=== PATIENT | male | born 1930 | race Caucasian/White ===

== ENCOUNTER 2017-06-14 09:42 | Inpatient (IN) ==
--- NOTE | 2017-06-13 16:43 | Discharge Summary ---
<Nallely Collins E - Last Filed: 06/13/17 16:40> Date of Encounter: 06/13/17 - Discharge Diagnosis (1) Rotator cuff tear arthropathy of right shoulder Priority: Primary Status: Chronic (2) HLD (hyperlipidemia) Priority: Secondary Status: Chronic Qualifiers: Hyperlipidemia type: unspecified Qualified Code(s): E78.5 - Hyperlipidemia , unspecified (3) HTN (hypertension) Priority: Secondary Status: Chronic Qualifiers: Hypertension type: unspecified Qualified Code(s): I10 - Essential (primary ) hypertension (4) GERD (gastroesophageal reflux disease) Priority: Secondary Status: Chronic Qualifiers: Esophagitis presence: esophagitis presence not specified Qualified Code(s) : K21.9 - Gastro-esophageal reflux disease without esophagitis (5) History of skin cancer Priority: Secondary Status: Chronic - Discharge Medications Home Medications: Aspirin 81 mg PO DAILY 02/20/16 [History] Gluc/Hayden-MSM#1/C/Romero/Abhishek/Bor [Osteo Bi-Flex Caplet] 1 tab PO DAILY 02/20/16 [ History] Multivitamin [Multi-Day Vitamins] 1 tab PO DAILY 02/20/16 [History] Pravastatin Sodium [Pravachol] 20 mg PO DAILY 02/20/16 [History] Ramipril [Altace] 5 mg PO DAILY 02/20/16 [History] hydroCHLOROthiazide [Hydrochlorothiazide] 25 mg PO DAILY 02/20/16 [History] Aspirin Enteric Coated [Aspirin EC] 325 mg PO DAILY 21 Days #21 tablet. [Rx] OxyCODONE Immed Rel [Roxicodone 5 MG] 5 mg PO Q6HR PRN 7 Days #28 tablet [Rx] Omeprazole [PriLOSEC] 40 mg PO DAILY 06/14/17 [History] Tramadol HCl [Ultram] 50 - 100 mg PO HS PRN 06/14/17 [History] Allergies/Adverse Reactions: 3 Allergy/AdvReac Type Severity Reaction Status Date / Time No Known Allergies Allergy Verified 06/14/17 10:15 Primary care physician: Ray Tom DO - Patient Status Disposition: Home Health Service Condition: Good - Discharge Instructions Follow Up With: Ray Tom DO [Primary Care Provider] - - Hospital Course Hospital course: Mr. Hurt is a 86 year old male - Time Spent with Patient Total time spent providing and/or coordinating discharge services: <Gerardo Low - Last Filed: 06/15/17 06:27> Date of Encounter: 06/15/17 Time of Encounter: 06:27 - Discharge Diagnosis (1) Obesity (BMI 30.0-34.9) Priority: Secondary Status: Chronic (2) Rotator cuff tear arthropathy of right shoulder Priority: Primary Status: Chronic (3) HLD (hyperlipidemia) Priority: Secondary Status: Chronic Qualifiers: Hyperlipidemia type: unspecified Qualified Code(s): E78.5 - Hyperlipidemia , unspecified (4) HTN (hypertension) Priority: Secondary Status: Chronic Qualifiers: Hypertension type: unspecified Qualified Code(s): I10 - Essential (primary ) hypertension (5) GERD (gastroesophageal reflux disease) Priority: Secondary Status: Chronic Qualifiers: Esophagitis presence: esophagitis presence not specified Qualified Code(s) : K21.9 - Gastro-esophageal reflux disease without esophagitis (6) History of skin cancer Priority: Secondary Status: Chronic (7) Status post reverse total arthroplasty of right shoulder Priority: Primary Status: Acute Primary care physician: Ray Tom DO - Patient Status Functional capacity at discharge: independent ambulation Overall status at discharge: patient is progressing back to baseline - Hospital Course Hospital course: Mr. Hurt is a 86 year old male Post shoulder replacement The patient had an uneventful postoperative course. They received antibiotics and physical therapy and were discharged in stable condition. There will follow -up in the office in 2 weeks. - Time Spent with Patient Total time spent providing and/or coordinating discharge services:
--- NOTE | 2017-06-13 16:45 | Physician Discharge Referral ---
Home Health/Hosp Referral Info Transfer to: Home Health Attending Provider: Dr Gerardo Low - Diagnosis (1) Rotator cuff tear arthropathy of right shoulder Priority: Primary Status: Chronic (2) HLD (hyperlipidemia) Priority: Secondary Status: Chronic (3) HTN (hypertension) Priority: Secondary Status: Chronic (4) GERD (gastroesophageal reflux disease) Priority: Secondary Status: Chronic (5) History of skin cancer Priority: Secondary Status: Chronic (6) Status post reverse total arthroplasty of right shoulder Priority: Primary Status: Acute - Respiratory Orders Smoking Cessation: Smoking cessation has been advised. For more information, call the [place] Tobacco Quit Line at 7-973-FRIF-NOW. - Dressing/Wound Care Site: right shoulder Type of Dressing/Treatments w/Frequency: Opsite placed. Keep dressing intact until first follow up appointment. If > 50% saturated, notify office, remove dressing and place appropriate dressing back in place. Dressing is water resistant, not water-proof. OK to shower, but do not get dressing wet. - Diet/Nutrition Diet/Nutrition Orders: Regular - Activity Activity Orders: Up ad manoj, Ambulate, Chair Activity: List: PT/OT. NWB to affected upper extremity. Follow Shoulder Precautions x 6 weeks. Stay in brace during activity and at night. Remove brace during exercises. ICE and elevate extremity frequently throughout the day. - Services Needed Following services are medically necessary services: Nursing, Home Health Aide, Physical Therapy, Occupational Therapy - Transfer Medications Prescriptions: OxyCODONE Immed Rel [Roxicodone 5 MG] 5 mg PO Q6HR PRN 7 Days #28 tablet PRN Reason: Pain Aspirin Enteric Coated [Aspirin EC] 325 mg PO DAILY 21 Days #21 tablet. Home Medications: Aspirin 81 mg PO DAILY 02/20/16 [History] Gluc/Hayden-MSM#1/C/Romero/Abhishek/Bor [Osteo Bi-Flex Caplet] 1 tab PO DAILY 02/20/16 [ History] Metoprolol XL (24 HR) Succ [Toprol XL] 25 mg PO DAILY 02/20/16 [History] Multivitamin [Multi-Day Vitamins] 1 tab PO DAILY 02/20/16 [History] Pravastatin Sodium [Pravachol] 20 mg PO DAILY 02/20/16 [History] Ramipril [Altace] 5 mg PO DAILY 02/20/16 [History] hydroCHLOROthiazide [Hydrochlorothiazide] 25 mg PO DAILY 02/20/16 [History] Aspirin Enteric Coated [Aspirin EC] 325 mg PO DAILY 21 Days #21 tablet. [Rx] OxyCODONE Immed Rel [Roxicodone 5 MG] 5 mg PO Q6HR PRN 7 Days #28 tablet [Rx] Allergies/Adverse Reactions: 3 Allergy/AdvReac Type Severity Reaction Status Date / Time No Known Allergies Allergy Verified 06/04/17 08:38 Certification: Further, I certify that my clinical findings support that this patient is homebound (i.e. absences from home require considerable and taxing effort and are for medical reasons or hinduism services or infrequently or short duration when for other reasons) because: Homebound Reason: Post-surgery restriction and or conditions limit ability to leave home Attestation: My signature below is to certify that this patient is under my care and that I, or nurse practitioner, or a physician phlebotomist medical lab assistant working with me, has a face-to- face encounter with this patient.
[2017-06-14] MEDS ORDERED: CeFAZolin Syr 2,000MG/20 ML 2,000 MG/20 ML SYRINGE IVPB ONE (09:56)
[2017-06-14] MEDS ORDERED: Ringers Solution, Lactated 1,000 ML IVC SCH ×2 (10:00→15:17)
--- NOTE | 2017-06-14 10:31 | History & Physical Report ---
Date of Encounter: 06/14/17 Time of Encounter: 10:31 24 Hour HP Update - Instructions Instructions: If the History and Physical is less than 30 days old and was completed prior to A.M. admission and or procedure and has NOT been updated on calendar day of procedure please complete this update prior to performing procedure. - Update Patient reports changes in Medical Condition: No Changes in examination, assessment, or condition: No Changes in Medication: No Preop tests/diagnostics Reviewed: Yes Surgery Remains Indicated: Yes Consent for Planned Operative Procedure(s) Verified: Yes - Pre-Operative Checklist Preoperative Checklist Indicated: No Prophylactic Antibiotic Ordered: Yes Is VTE Prophylaxis Indicated?: Yes
--- NOTE | 2017-06-14 10:42 | Anesthesia Evaluation PreOp ---
Date of Encounter: 06/14/17 Time of Encounter: 10:40 - Past History Alcohol Use: none Drug use: none Medications and Allergies Aspirin 81 mg PO DAILY 02/20/16 [History] Gluc/Hayden-MSM#1/C/Romero/Abhishek/Bor [Osteo Bi-Flex Caplet] 1 tab PO DAILY 02/20/16 [ History] Multivitamin [Multi-Day Vitamins] 1 tab PO DAILY 02/20/16 [History] Pravastatin Sodium [Pravachol] 20 mg PO DAILY 02/20/16 [History] Ramipril [Altace] 5 mg PO DAILY 02/20/16 [History] hydroCHLOROthiazide [Hydrochlorothiazide] 25 mg PO DAILY 02/20/16 [History] Aspirin Enteric Coated [Aspirin EC] 325 mg PO DAILY 21 Days #21 tablet. [Rx] OxyCODONE Immed Rel [Roxicodone 5 MG] 5 mg PO Q6HR PRN 7 Days #28 tablet [Rx] Omeprazole [PriLOSEC] 40 mg PO DAILY 06/14/17 [History] Tramadol HCl [Ultram] 50 - 100 mg PO HS PRN 06/14/17 [History] 3 Allergy/AdvReac Type Severity Reaction Status Date / Time No Known Allergies Allergy Verified 06/14/17 10:15 - Meds/Allergy Pre-op Review Medications Reviewed: Yes Allergies Reviewed: Yes Beta Blockers on Current Med List: No Anesthesia Results - Labs 07/19/15 Stress There is a mild intensity perfusion defect involving the apex in which very mild ischemia cannot be ruled out. A fixed defect involving the inferior wall is present that is consistent with artifact. No evidence for infarct Pharmacologic ECG was negative for ischemia at the level of heart rate achieved. Patient had no chest pain with stress. Normal hemodynamic response. Occasional to frequent isolated PVCs throughout testing. Gated EF = 57%. Normal wall motion. Laboratory Tests 06/04/17 06/04/17 06/04/17 09:30 09:30 09:30 WBC 6.5 Hgb 13.9 Hct 42.1 Plt Count 161 INR 1.0 Sodium 140 Potassium 3.8 Chloride 104 Carbon Dioxide 27 BUN 23 Creatinine 1.13 Anesthesia Exam O2 Sat Height 1.83 m Height 1.83 m Height 1.83 m Weight 104.326 kg Weight 104.326 kg Weight 104.326 kg O2 Sat by Pulse Oximetry 95 Vital Signs Temp Pulse Resp BP Pulse Ox 97.3 F L 82 18 145/83 95 06/14/17 10:00 06/14/17 10:00 06/14/17 10:00 06/14/17 10:00 06/14/17 10:00 Height: 6' Weight: 230# NPO (# of Hours): > 8 Hrs Pain Scale: 0 Pain Scale Used: Numeric (1 - 10) Anesthesia Assess/Plan ASA Score: 3 Modified Maciej Scale for Level of Consciousness: Cooperative, oriented, and tranquil Anesthetic Plan: General, Regional
[2017-06-14] MEDS ORDERED: ROPIVACAINE HCL/PF 0.5% 30 ML VIAL ONE (11:49)
[2017-06-14] MEDS ORDERED: *HR* FentaNYL (PF) 100 MCG/2 ML VIAL ONE (11:50)
[2017-06-14] MEDS ORDERED: *HR* Midazolam HCl 2 MG/2 ML VIAL ONE (11:50)
[2017-06-14] MEDS ORDERED: Dexamethasone 4 MG/ML VIAL ONE ×2 (11:51→12:51)
[2017-06-14] MEDS ORDERED: Lidocaine -MPF 2% 2 ML VIAL ONE (11:58)
[2017-06-14] MEDS ORDERED: *HR* Propofol 200 MG/20 ML VIAL IVP ONE (11:58)
--- NOTE | 2017-06-14 12:48 | Anesthesia Procedures ---
Date of Encounter: 06/14/17 Time of Encounter: 12:46 Procedures: Anesthesia - Nerve Block Procedure Date: 06/14/17 Time: 12:46 Allergies/Adv Reactions: 3 Allergy/AdvReac Type Severity Reaction Status Date / Time No Known Allergies Allergy Verified 06/14/17 10:15 Pre-op Diagnosis: right rotator cuff arthropathy Surgical Procedure: right reverse ball Checklist: Correct Patient Identifier, Correct procedure, History checked Correct side: Right Blood Thinner: No Monitor Applied: EKG, BP, Pulse Oximetry Supplemental Oxygen via Nasal Cannula (L/min): 2 Sedation: Fentanyl (mcg): 100 Indication: Post Op Analgesia Block Type: Supraclavicular Catheter placed: No Sterile Technique: Yes Ultrasound used: Yes Anatomy identified: Yes Visual spread of Local: Yes Neuro Stimulation: No Blood on Needle Aspiration: No Smooth Injection of Local: Yes Pain with Injection of Local: No Prep: Chlorhexadine Needle: 22 x 50 mm Stimuplex Local: Ropivacaine (0.5%) Volume (cc): 30 Number of Attempts: 1 Complications: None/effective block
[2017-06-14] MEDS ORDERED: Ondansetron 4 MG/2 ML VIAL ONE (12:51)
[2017-06-14] MEDS ORDERED: Ondansetron 4 MG/2 ML VIAL IVP PRN ×2 (13:02→15:17)
[2017-06-14] MEDS ORDERED: *HR* HYDROmorphone (PF) 1 MG/ML SYRINGE IVP PRN ×2 (13:02→15:17)
--- NOTE | 2017-06-14 13:32 | Orthopedic Operative Note ---
Date of procedure: 06/14/17 Pre-op diagnosis: Right shoulder cuff tear arthropathy Post-op diagnosis: same Procedure: Procedure: Total Shoulder Replacment Reverse, right Estimated blood loss: 100 cc Hardware: Metal and polyethylene replacement: Arthrex large glenoid baseplate, 2 4.5 screws. 1 6.5 screw, 42+4 glenosphere, 12 humeral stem, poly insert 3, 9 metal Exam Under anesthesia: Full motion no instability Procedural Notes: Irreparable tear supraspinatus tendon. Operative procedure: The patient was brought to the operating room and placed on the operating room table. After general anesthesia was administered the operative shoulder was examined. Findings were noted. The patient was placed in the modified beachchair position. All pressure points were padded appropriately. And the head was stabilized in the neutral position. The operative extremity was prepped and draped in the sterile surgical fashion. The patient received IV antibiotics prior to skin incision. A standard deltopectoral approach was made to the operative shoulder. Incision was made to the skin and subcutaneous tissue,hemo stasis was obtained with Bovie cautery. Using careful blunt dissection the cephalic vein was identified and mobilized medially. The deltopectoral interval was developed and the clavipectoral fascia was incised. The subscap was released off the lesser tuberosity and tagged with #2 FiberWire suture subscap was irreparable. The humerus was dislocated patient noted to have irreparable tear supraspinatus tendon, and the humeral cut was made along the anatomic neck. Anterior and posterior Bankart retractors were placed to expose the glenoid. The glenoid guide was seated and the centering hole was made. It was reamed with the appropriate reamer. Large baseplate was seated and secured with (2) 4.5 screws and one 6.5 screw. The baseplate was irrigated and dried and the 42+4 Glenosphere was seated and secured with the Pimentel taper. The Pimentel taper was tested and found to be secure the humerus was redislocated and prepared with the diaphyseal reamers, followed by a broaching process up to the appropriate size 12 in the patient's anatomic version. The metaphyseal reamer was then utilized. Trial reduction found the shoulder to be relocatable. Trial components were removed and the 12 stem was impacted in place in the patient's anatomic version. Trial reduction found the shoulder to be relocatable and stable with the appropriate 9 metal 3 Della. Trial component was removed and the real implants was seated and secured the shoulder was reduced. The shoulder had excellent motion and excellent stability and no evidence of dislocation. The deep tissue was irrigated with pulse irrigation. Shoulder was closed by the PA. The deltopectoral interval was closed with a running #1 PDS suture, subcutaneous tissue was irrigated and closed with 0 PDS suture, the skin was closed with Dermabond. The patient was placed in a sterile dressing, abduction brace and extubated. The patient was then transferred to the recovery room in stable condition. Anesthesia: GETA Surgeon: Gerardo Low Condition: stable Disposition: PACU
[2017-06-14 14:15] LABS: Hematocrit 41.8 % (37.5-50.1); Hemoglobin 13.5 g/dL (12.9-16.9)
--- NOTE | 2017-06-14 14:25 | Anesthesia Evaluation Post Op ---
Date of Encounter: 06/14/17 Time of Encounter: 14:23 - Vital Signs Vital Signs: Vital Signs/O2 Sat, Most Current Temp Pulse Resp BP Pulse Ox 97.6 F 77 14 113/74 97 06/14/17 14:22 06/14/17 14:22 06/14/17 14:22 06/14/17 14:22 06/14/17 14:22 - Lungs Lungs: Clear Ascult./Percussion - Airway Airway: Non-obstructed - Cardiovascular Regular Rate - Mental Status Mental Status: Alert & Oriented, Answers Appropriately - Pain Pain Scale: 5 Pain Scale used: Numeric (1 - 10) - Nausea Vomiting Nausea Vomiting: Not Present - Hydration Hydration: Ice chips - Discharge PostOp Status: Transfer Patient to floor
[2017-06-14] MEDS ORDERED: Sennosides 8.6 MG TABLET PO PRN (15:17)
[2017-06-14] MEDS ORDERED: MOM Conc 10 ML UD.LIQ PO PRN (15:17)
[2017-06-14] MEDS ORDERED: Naloxone 0.4 MG/ML INJ IVP PRN (15:17)
[2017-06-14] MEDS ORDERED: *HR* OxyCODONE Immed Rel 5 MG TABLET PO PRN ×2 (15:17)
[2017-06-14] MEDS ORDERED: Temazepam 15 MG CAPSULE PO PRN (15:17)
[2017-06-14] MEDS ORDERED: traMADol 50 MG TABLET PO PRN (15:17)
[2017-06-14] MEDS: CeFAZolin Premix DUPLEX 2,000 MG/50 ML BAG IVPB SCH ×2 (16:55→23:20)
[2017-06-14] MEDS: *HR* Enoxaparin 30 MG/0.3 ML SYRINGE SQ SCH (16:59)
[2017-06-14] MEDS ORDERED: *HR* Enoxaparin 30 MG/0.3 ML SYRINGE SQ SCH (18:00)
[2017-06-15] MEDS: *HR* Enoxaparin 30 MG/0.3 ML SYRINGE SQ SCH (05:06)
--- NOTE | 2017-06-15 06:28 | Orthopedics Progress Note ---
Date of Encounter: 06/15/17 Time of Encounter: 06:28 - Assessment and Plan (1) Obesity (BMI 30.0-34.9) Current Visit: Yes Status: Chronic (2) Rotator cuff tear arthropathy of right shoulder Current Visit: No Status: Chronic (3) HLD (hyperlipidemia) Current Visit: No Status: Chronic Qualifiers: Hyperlipidemia type: unspecified Qualified Code(s): E78.5 - Hyperlipidemia , unspecified (4) HTN (hypertension) Current Visit: No Status: Chronic Qualifiers: Hypertension type: unspecified Qualified Code(s): I10 - Essential (primary ) hypertension (5) GERD (gastroesophageal reflux disease) Current Visit: No Status: Chronic Qualifiers: Esophagitis presence: esophagitis presence not specified Qualified Code(s) : K21.9 - Gastro-esophageal reflux disease without esophagitis (6) History of skin cancer Current Visit: No Status: Chronic (7) Status post reverse total arthroplasty of right shoulder Current Visit: No Status: Acute Subjective Interval history: Patient was seen this morning doing well without complaints. Afebrile vital signs stable. Operative extremity: Neurovascularly intact Dressing clean dry and intact Calves nontender Assessment and plan: Continue with postoperative care Discharged today Objective Vital signs: Vital Signs Temp Pulse Resp BP Pulse Ox 06/15/17 03:49 98 F 79 18 98/64 93 06/14/17 23:25 98.0 F 96 18 136/81 93 06/14/17 19:24 98.3 F 84 18 112/72 93 06/14/17 16:20 97.6 F 69 18 114/75 94 06/14/17 15:30 97.2 F L 76 16 117/74 95 06/14/17 14:47 96.6 F L 77 16 115/76 93 06/14/17 14:32 97.6 F 80 16 122/71 95 06/14/17 14:22 77 14 113/74 97 06/14/17 14:12 97.6 F 76 16 110/74 96 06/14/17 14:02 69 14 115/79 94 06/14/17 13:52 80 16 123/91 95 06/14/17 13:42 98.2 F 91 18 134/96 96 06/14/17 12:27 65 16 132/94 98 06/14/17 10:00 97.3 F L 82 18 145/83 95 Intake and Output 06/14/17 06/14/17 06/15/17 15:59 23:59 07:59 Intake Total 940 / 940 100 / 100 Output Total 100 / 100 175 / 175 225 / 225 Balance -100 / -100 765 / 765 -125 / -125 Intake: IV Fluids 50 / 50 50 / 50 Ancef Premix DUPLEX 2,000 mg In 50 / 50 50 / 50 50 ml @ 100 mls/hr IVPB Q8HR [facility] Rx#:[id number] Oral 890 / 890 50 / 50 Output: Urine 0 / 0 175 / 175 225 / 225 Estimated Blood Loss 100 / 100 Other: Meal Dinner Percent of Meal Consumed 75% Weight 104.326 kg 103.3 kg Patient Weight 06/15/17 23:59 Weight 103.3 kg - Labs CBC & BMP: 06/14/17 14:07 - VTE Documentation of Mechanical Device: Venous foot pump, device Consult Discharge Plan - Plan Referrals: Ray Tom DO [Primary Care Provider] -
[2017-06-15 06:59] LABS: Hematocrit 38.3 % (37.5-50.1); Hemoglobin 12.8 g/dL (12.9-16.9)
[2017-06-15] MEDS ORDERED: Multivit/Ca/Min/Fe/FA 1 TAB TABLET PO SCH (09:00)
[2017-06-15] MEDS ORDERED: hydroCHLOROthiazide 25 MG TABLET PO SCH (09:00)
[2017-06-15] MEDS ORDERED: Aspirin 81 MG TAB.CHEW PO SCH (09:00)
[2017-06-15 10:51] VITALS: BP 129/82
== END 2017-06-15 13:30 | disposition home health service (06) | DRG 483 ==
LOC: SAMDAY 09:42 → 3NENU 09:43
PROVIDERS: ADMIT Orthopaedic Surgery; ATTEND Orthopaedic Surgery

== ENCOUNTER 2018-04-25 06:34 | Inpatient (IN) ==
--- NOTE | 2018-04-25 06:56 | History & Physical Report ---
Date of Encounter: 04/25/18 Time of Encounter: 06:56 24 Hour HP Update - Instructions Instructions: If the History and Physical is less than 30 days old and was completed prior to A.M. admission and or procedure and has NOT been updated on calendar day of procedure please complete this update prior to performing procedure. - Update Patient reports changes in Medical Condition: No Changes in examination, assessment, or condition: No Changes in Medication: No Preop tests/diagnostics Reviewed: Yes Surgery Remains Indicated: Yes Consent for Planned Operative Procedure(s) Verified: Yes - Pre-Operative Checklist Preoperative Checklist Indicated: No Prophylactic Antibiotic Ordered: Yes Is VTE Prophylaxis Indicated?: Yes
[2018-04-25] MEDS ORDERED: *HR* Midazolam HCl 2 MG/2 ML VIAL ONE (07:04)
[2018-04-25] MEDS ORDERED: *HR* Propofol 200 MG/20 ML VIAL IVP ONE (07:04)
[2018-04-25] MEDS ORDERED: *HR* FentaNYL (PF) 100 MCG/2 ML VIAL ONE (07:04)
[2018-04-25] MEDS ORDERED: Acetaminophen IV 1,000 MG/100 ML INFUS..BTL IVPB ONE (07:06)
[2018-04-25] MEDS ORDERED: Famotidine 20 MG/2 ML VIAL IVP ONE (07:06)
[2018-04-25] MEDS ORDERED: Celecoxib 100 MG CAPSULE PO ONE (07:07)
[2018-04-25] MEDS ORDERED: Lidocaine -MPF 4% 5 ML AMPUL ONE (07:11)
[2018-04-25] MEDS ORDERED: Ethanol\\Acetic Acid\\Na Ace\\Ben 1,000 ML IRRIG.SOLN IR ONE (07:14)
[2018-04-25] MEDS ORDERED: Ringers Solution, Lactated 1,000 ML IVC SCH ×2 (07:15→12:13)
--- NOTE | 2018-04-25 07:35 | Discharge Summary ---
<Gerardo Low - Last Filed: 04/25/18 08:12> Orders not resulted at time of discharge: Pending orders 04/25/18 07:07 US anesthesia pain block [US] Routine 04/25/18 07:32 XR shoulder complete LT [XR] Routine 04/25/18 07:34 H/H [Hemoglobin and Hematocrit] [HEME] Routine - Discharge Diagnosis (1) Rotator cuff arthropathy of left shoulder Priority: Primary Status: Chronic (2) Status post reverse total replacement of left shoulder Priority: Primary Status: Acute (3) Status post reverse total arthroplasty of right shoulder Priority: Secondary Status: Chronic (4) GERD (gastroesophageal reflux disease) Priority: Secondary Status: Chronic Qualifiers: Esophagitis presence: esophagitis presence not specified Qualified Code(s): K21.9 - Gastro-esophageal reflux disease without esophagitis (5) HLD (hyperlipidemia) Priority: Secondary Status: Chronic Qualifiers: Hyperlipidemia type: mixed hyperlipidemia Qualified Code(s): E78.2 - Mixed hyperlipidemia (6) HTN (hypertension) Priority: Secondary Status: Chronic Qualifiers: Hypertension type: essential hypertension Qualified Code(s): I10 - Essential (primary) hypertension (7) History of skin cancer Priority: Secondary Status: Chronic (8) Obesity (BMI 30.0-34.9) Priority: Secondary Status: Chronic - Hospital Course Hospital course: Mr. Hurt is a 87 year old male - Time Spent with Patient Total time spent providing and/or coordinating discharge services: - Discharge Medications Home Medications: Aspirin 81 mg PO DAILY 02/20/16 [History] Gluc/Hayden-MSM#1/C/Romero/Abhishek/Bor [Osteo Bi-Flex Caplet] 1 tab PO DAILY 02/20/16 [History] Pravastatin Sodium [Pravachol] 20 mg PO DAILY 02/20/16 [History] hydroCHLOROthiazide [Hydrochlorothiazide] 25 mg PO DAILY 02/20/16 [History] Esomeprazole Magnesium [Nexium] 40 mg PO DAILY 04/25/18 [History] Multivitamin [One Daily Essential] 1 tab PO DAILY 04/25/18 [History] OxyCODONE Immed Rel [Roxicodone 5 MG] 5 mg PO Q6HR PRN 7 Days #28 tablet 04/25/18 [Rx] Ramipril [Altace] 5 mg PO DAILY 04/25/18 [History] Allergies/Adverse Reactions: Allergy/AdvReac Type Severity Reaction Status Date / Time No Known Allergies Allergy Verified 06/14/17 10:15 Primary care physician: Ray Tom DO - Patient Status Disposition: Home, Self-Care - Discharge Instructions Follow Up With: Estefania Wilson PAC [Physician Machine Stemmer] - 05/05/18 8:00 am Ray Tom DO [Primary Care Provider] - Additional Instructions: Discharge Instructions: Total Shoulder Please call [facility] ([phone]), your Primary Care Physician, or report to the Emergency Room if you have any of the following symptoms: Nausea, vomiting, fever greater that 101.5, swelling, chest pain, shortness of breath, increased pain/redness/drainage/odor for your incision site, numbness/tingling, or any other concerning symptoms. ACTIVITY: Always keep your arm in the sling. Do not raise your arm away from your body. Do not use your arm to help with getting in or out of bed. No weight bearing permitted. Only perform those exercises given to you by your therapist. Incentive Spirometer 10 times an hour. MEDICATIONS: Upon discharge resume your home medications. Take all the medications as prescribed. Take a stool softener if taking narcotic pain medications. Stool softeners are only effective if you drink enough fluids. Drink 6-8 glass of water or fluids a day, unless this is not allowed for another health problem. Despite using stool softeners, if you haven't had a bowel movement in 3 days, please switch to a gentle laxative. Gentle laxatives are sold over the counter. You should have a bowel movement within 24 hours, if not call the office. You will be discharged from the hospital with a prescription for pain medication. You are encouraged to decrease the use of narcotic pain medication as tolerated. Should you require a refill, please call the office. [facility] prescribes narcotic pain medication for only 4-6 weeks after surgery. If you require pain medication beyond this time period, you may be referred to your Primary Care Physician or to the Pain Clinic for further evaluation. Plan ahead for refills on pain medication as many narcotics either need to be picked up at the office or mailed. It is best to call 48-72 hours in advance of needing a prescription refill so you don't run out of medication. To help control the post-operative pain, you may take NSAIDs (Aleve,Advil, Motrin, Ibuprofen, Naprosyn) or Tylenol as prescribed on the bottle in addition to the pain medication. WOUND CARE: Leave the dressing on for 7-10 days. You may change the dressing if it becomes saturated greater than 50%. Do not get the dressing wet at anytime. Wash your hands with antibacterial soap, rinse and dry prior to any wound care. If you have erika the visiting nurse or rehab facility can remove the stapes 10-14 days after surgery and place steri-strips across the wound. Leave the steri-strips in place until they fall off on their own. You may let water from the shower run on top of the steri-strips. If you do not have a visiting nurse or rehab facility, you will need to return to the office at 10-14 days for the erika to be removed. If you have itching or redness around the dressing call the office. FOLLOW-UP: Please follow up with your surgeon in the orthopedic clinic, as scheduled <Estefania Wilson - Last Filed: 04/25/18 20:07> Orders not resulted at time of discharge: Pending orders 04/25/18 07:07 US anesthesia pain block [US] Routine 04/25/18 07:32 XR shoulder complete LT [XR] Routine 04/25/18 07:34 H/H [Hemoglobin and Hematocrit] [HEME] Routine Date of Encounter: 04/25/18 Time of Encounter: 20:06 - Discharge Diagnosis (1) Status post reverse total replacement of left shoulder Priority: Primary Status: Acute Comments: Opsite placed. Keep dressing intact until first follow up appointment. If > 50% saturated, notify office, remove dressing and place appropriate dressing back in place. Leave Zipline intact. Opsite dressing is water resistant, not water- proof. OK to shower, but do not get dressing wet. PT/OT. NWB to affected upper extremity. Follow Shoulder Precautions x 6 weeks. Stay in brace during activity and at night. Remove brace during exercises. ICE and elevate extremity frequently throughout the day. (2) Rotator cuff arthropathy of left shoulder Priority: Primary Status: Chronic (3) HLD (hyperlipidemia) Priority: Secondary Status: Chronic Qualifiers: Hyperlipidemia type: mixed hyperlipidemia Qualified Code(s): E78.2 - Mixed hyperlipidemia (4) HTN (hypertension) Priority: Secondary Status: Chronic Qualifiers: Hypertension type: essential hypertension Qualified Code(s): I10 - Essential (primary) hypertension (5) Obesity (BMI 30.0-34.9) Priority: Secondary Status: Chronic - Hospital Course Hospital course: Mr. Hurt is a 87 year old male, s/p Left TSR-reverse apex 04/25 Vitals reviewed:Stable for D/C Vital Signs Temp Pulse Resp BP Pulse Ox 04/25/18 15:47 96.1 F L 71 17 127/74 91 04/25/18 13:04 97.6 F 63 18 140/77 96 04/25/18 11:45 97.5 F L 63 16 137/78 98 04/25/18 11:15 97.5 F L 66 16 116/67 95 04/25/18 10:45 97.4 F L 60 14 133/83 99 04/25/18 10:16 97.0 F L 57 16 128/76 100 04/25/18 10:06 97.0 F L 59 16 126/76 100 04/25/18 09:56 58 14 133/89 99 04/25/18 09:46 58 15 139/83 100 04/25/18 09:36 97.0 F L 66 16 164/91 99 04/25/18 08:26 64 16 112/78 97 04/25/18 08:08 63 16 122/72 97 04/25/18 08:01 71 16 139/80 97 04/25/18 07:02 98.3 F 77 18 147/87 94 Intake and Output 04/25/18 04/25/18 04/25/18 07:59 15:59 23:59 Output Total 50 / 50 Balance -50 / -50 Output: Estimated Blood Loss 50 / 50 Other: Weight 103.419 kg Patient Weight 04/25/18 23:59 Weight 103.419 kg Labs reviewed: stable for D/C Short CBC 04/25/18 Range/Units 10:01 Hgb 12.2 L (12.9-16.9) g/dL Hct 37.2 L (37.5-50.1) % Pain control: Adequate, nerve block intact Participating in PT. All questions and concerns addressed. Educated on use of incentive spirometer, ambulation, and hydration. Patient educated on post-operative restrictions and care. D/C plan: Home with OP. - Time Spent with Patient Total time spent providing and/or coordinating discharge services: Primary care physician: Ray Tom DO
[2018-04-25] MEDS ORDERED: ROPIVACAINE HCL/PF 0.5% 30 ML VIAL ONE (07:39)
[2018-04-25] MEDS ORDERED: Tetracaine/PF 20 MG/2 ML AMPUL ONE (07:40)
--- NOTE | 2018-04-25 07:42 | Anesthesia Evaluation PreOp ---
Date of Encounter: 04/25/18 Time of Encounter: 07:30 - Past History Planned Operation: Left Total Shoulder Replacement Cardiac History: HTN, Hyperlipidemia Pulmonary History: Denies Any Significant HX APPAREL FASHION DESIGNER History: Denies Any Significant HX Other Medical History: Denies Any Significant HX Anesthesia History: No Prior Anesthetic Complications Alcohol Use: none Drug use: none Medications and Allergies Aspirin 81 mg PO DAILY 02/20/16 [History] Gluc/Hayden-MSM#1/C/Romero/Abhishek/Bor [Osteo Bi-Flex Caplet] 1 tab PO DAILY 02/20/16 [History] Pravastatin Sodium [Pravachol] 20 mg PO DAILY 02/20/16 [History] hydroCHLOROthiazide [Hydrochlorothiazide] 25 mg PO DAILY 02/20/16 [History] Esomeprazole Magnesium [Nexium] 40 mg PO DAILY 04/25/18 [History] Multivitamin [One Daily Essential] 1 tab PO DAILY 04/25/18 [History] Ramipril [Altace] 5 mg PO DAILY 04/25/18 [History] Allergy/AdvReac Type Severity Reaction Status Date / Time No Known Allergies Allergy Verified 06/14/17 10:15 - Meds/Allergy Pre-op Review Medications Reviewed: Yes Allergies Reviewed: Yes Beta Blockers on Current Med List: No Anesthesia Results - Labs Laboratory Tests 04/18/18 04/18/18 04/18/18 09:50 09:50 09:50 Hgb 14.4 Hct 42.1 Plt Count 199 PT 10.7 INR 1.0 APTT 30.9 Sodium 138 Potassium 3.9 BUN 17 Creatinine 1.00 - Imaging EKG: report reviewed Additional studies: Stress Test 2016 Negative EF 50% Anesthesia Exam O2 Sat Height 1.83 m Height 1.83 m Height 1.83 m Weight 103.419 kg Weight 103.419 kg Weight 103.419 kg O2 Sat by Pulse Oximetry 94 Vital Signs Temp Pulse Resp BP Pulse Ox 98.3 F 77 18 147/87 94 04/25/18 07:02 04/25/18 07:02 04/25/18 07:02 04/25/18 07:02 04/25/18 07:02 Height: 6'0 Weight: 228 lbs NPO (# of Hours): MN Pain Scale: 0 - HEENT Pupil (Motor): Pupils equal, EOMI Mallampati: II Teeth: Missing, Poor dentition Oral Opening: Greater than 3 - APPAREL FASHION DESIGNER LOC: Oriented APPAREL F[employer]ION DESIGNER Motor: Normal RUE, Normal LUE, Normal RLE, Normal LLE, Normal Face [employer]PAREL F[employer]ION DESIGNER Sensory: Normal: RUE, LUE, RLE, LLE, Face - Cardiac Rhythm: Regular Murmur: None JVD: No Carotid Bruit: No - Pulmonary Breath Sounds: bilateral Clear Respiratory Effort: Symmetrical Anesthesia Assess/Plan ASA Score: 2 Modified [place] Scale for Level of Consciousness: Cooperative, oriented, and tranquil Anesthetic Plan: General, Regional Monitoring Plan: Standard Monitors Recovery Plan: PACU (Discussed GA and RA, agrees to proceed)
[2018-04-25] MEDS ORDERED: *HR* Succinylcholine 200 MG/10 ML VIAL IVP ONE (07:46)
[2018-04-25] MEDS ORDERED: CeFAZolin Syr 2,000MG/20 ML 2,000 MG/20 ML SYRINGE IVPB ONE (07:57)
--- NOTE | 2018-04-25 08:13 | Anesthesia Procedures ---
Date of Encounter: 04/25/18 Time of Encounter: 08:15 Procedures: Anesthesia - Nerve Block Procedure Date: 04/25/18 Time: 08:11 Allergies/Adv Reactions: nkda Pre-op Diagnosis: Left shoulder arthritis Surgical Procedure: Left total shoulder replacement Checklist: Correct Patient Identifier, Correct procedure, History checked Correct side: Left Blood Thinner: No Monitor Applied: BP, Pulse Oximetry Supplemental Oxygen via Nasal Cannula (L/min): 2 Sedation: Versed (mg): 2 Sedation: Fentanyl (mcg): 50 Indication: Post Op Analgesia Pre-op Neuro Deficits: No Block Type: Supraclavicular, Other (ICB) Catheter placed: No Depth at skin (cm): 2 Sterile Technique: Yes Ultrasound used: Yes Anatomy identified: Yes Visual spread of Local: Yes Neuro Stimulation: No Blood on Needle Aspiration: No Smooth Injection of Local: Yes Pain with Injection of Local: No Prep: Chlorhexadine Needle: 22 x 50 mm Stimuplex Local: Ropivacaine, Other (20mg tetracaine) Volume (cc): 30 Number of Attempts: 1 Complications: None/effective block
[2018-04-25] MEDS ORDERED: Ondansetron 4 MG/2 ML VIAL IVP PRN ×2 (08:30→12:13)
[2018-04-25] MEDS ORDERED: *HR* OxyCODONE Immed Rel 5 MG TABLET PO PRN ×2 (08:30→12:13)
--- NOTE | 2018-04-25 09:23 | Orthopedic Operative Note ---
Date of procedure: 04/25/18 Pre-op diagnosis: left shoulder cuff tear arthropathy Post-op diagnosis: same Procedure: Procedure: Total Shoulder Replacment Reverse, left Estimated blood loss: 50 cc Hardware: Metal and polyethylene replacement: Arthrex 28, +4 , 35 mm screw glenoid baseplate, 2 4.5 screws. 2 5.5 screw, 42+4 glenosphere, 15 apex humeral stem, poly insert 6 Exam Under anesthesia:Full motion no instability Procedural Notes:irreparable tear grade 4 arthritic changes glenoid and humeral Operative procedure: The patient was brought to the operating room and placed on the operating room table. After general anesthesia was administered the operative shoulder was examined. Findings were noted. The patient was placed in the modified beachchair position. All pressure points were padded appropriately. And the head was stabilized in the neutral position. The operative extremity was prepped and draped in the sterile surgical fashion. The patient received IV antibiotics prior to skin incision. A standard deltopectoral approach was made to the operative shoulder. Incision was made to the skin and subcutaneous tissue,hemo stasis was obtained with Bovie cautery. Using careful blunt dissection the cephalic vein was identified and mobilized medially. The deltopectoral interval was developed and the clavipectoral fascia was incised. The subscap was released off the lesser tuberosity and tagged with #2 FiberWire suture subscapularis was irreparable. The humerus was dislocated patient noted to have irreparable tear supraspinatus tendon, and the humeral cut was made along the anatomic neck. Grade 4 humeral head. Anterior and posterior Bankart retractors were placed to expose the glenoid. Grade 4 arthritic changes glenoid socket. The glenoid guide was seated and the centering hole was made. It was reamed with the appropriate reamer. The 28 +4, 35 mm screw baseplate was seated and secured with (2) 4.5 screws and 2 5.5 screw. The baseplate was irrigated and dried and the 42+4 Glenosphere was seated and secured with the Pimentel taper. The Pimentel taper was tested and found to be secure the humerus was redislocated and prepared with the diaphyseal reamers, followed by a broaching process up to the appropriate size 15 apex in the patient's anatomic version. The metaphyseal reamer was then utilized. Trial reduction found the shoulder to be relocatable. Trial components were removed and 15 apex stem was impacted in place in the patient's anatomic version. Trial reduction found the shoulder to be relocatable and stable with the appropriate 6. Trial component was removed and the real implant was seated and secured the shoulder was reduced. The shoulder had excellent motion and excellent stability and no evidence of dislocation. The deep tissue was irrigated with pulse irrigation. The PA close the shoulder. The deltopectoral interval was closed with a running #1 PDS suture, subcutaneous tissue was irrigated and closed with 0 PDS suture, the skin was closed with Dermabond. The patient was placed in a sterile dressing, abduction brace and extubated. The patient was then transferred to the recovery room in stable condition. Anesthesia: YUE Surgeon: Gerardo Low Was there an apartment assistant manager present: No Estimated blood loss (cc): 50 Condition: stable Disposition: PACU
[2018-04-25 10:16] LABS: Hematocrit 37.2 % (37.5-50.1); Hemoglobin 12.2 g/dL (12.9-16.9)
--- NOTE | 2018-04-25 10:23 | Anesthesia Evaluation Post Op ---
Date of Encounter: 04/25/18 Time of Encounter: 10: - Vital Signs Vital Signs: Vital Signs/O2 Sat, Most Current Temp Pulse Resp BP Pulse Ox 97.0 F L 57 16 128/76 100 04/25/18 10:16 04/25/18 10:16 04/25/18 10:16 04/25/18 10:16 04/25/18 10:16 - Lungs Lungs: Clear Ascult./Percussion - Airway Airway: Non-obstructed - Cardiovascular Regular Rate - Mental Status Mental Status: Alert & Oriented, Answers Appropriately - Pain Pain Scale: 0 Pain Scale used: Numeric (1 - 10) - Nausea Vomiting Nausea Vomiting: Not Present - Hydration Hydration: Ice chips, Has not voided - Discharge PostOp Status: Transfer Patient to floor
[2018-04-25] MEDS ORDERED: Lisinopril 20 MG TABLET PO SCH (12:13)
[2018-04-25] MEDS ORDERED: traMADol 50 MG TABLET PO PRN (12:13)
[2018-04-25] MEDS ORDERED: Aspirin 81 MG TAB.CHEW PO SCH (12:13)
[2018-04-25] MEDS ORDERED: hydroCHLOROthiazide 25 MG TABLET PO SCH (12:13)
[2018-04-25] MEDS ORDERED: Temazepam 15 MG CAPSULE PO PRN (12:13)
[2018-04-25] MEDS ORDERED: *HR* OxyCODONE/APAP 5/325 TABLET PO PRN (12:13)
[2018-04-25] MEDS ORDERED: Naloxone 0.4 MG/ML INJ IVP PRN (12:13)
[2018-04-25] MEDS ORDERED: Multivit/Ca/Min/Fe/FA 1 TAB TABLET PO SCH (12:13)
[2018-04-25] MEDS ORDERED: MOM Conc 10 ML UD.LIQ PO PRN (12:13)
[2018-04-25] MEDS ORDERED: Sennosides 8.6 MG TABLET PO PRN (12:13)
[2018-04-25] MEDS ORDERED: *HR* Enoxaparin 30 MG/0.3 ML SYRINGE SQ SCH ×4 (15:45→18:00)
[2018-04-26 15:35] VITALS: BP 111/72
== END 2018-04-25 17:08 | disposition home or self-care (01) | DRG 483 ==
LOC: SAMDAY 06:34 → 3NENU 10:49
PROVIDERS: ADMIT Orthopaedic Surgery; ATTEND Orthopaedic Surgery